=== PATIENT | female | born 1945 | race Caucasian/White ===

== ENCOUNTER 2018-08-18 21:38 | Emergency (ER) | payer MEDICARE ==
[~2018-08-18] VITALS: Ht 162.6 cm; Wt 76.0 kg
[2018-08-18] MEDS ORDERED: ONDANSETRON HCL 4MG/2ML INJ IV STA (22:53)
[2018-08-18] MEDS ORDERED: ONDANSETRON HCL 4MG/2ML INJ IV ONE (23:00)
[2018-08-18] MEDS ORDERED: PROPOFOL 200MG/20ML VIAL IV ONE (23:00)
[2018-08-18] MEDS ORDERED: FENTANYL CITRATE/PF 50MCG/ML 2ML VIAL IV ONE (23:00)
[2018-08-19 06:03] VITALS: BP 144/78
== END 2018-08-19 06:04 | disposition home or self-care (01) ==
LOC: ER 21:38
DX: S52.531A Colles' fracture of right radius, initial encounter for closed fracture (principal); E11.9 Type 2 diabetes mellitus without complications; I10 Essential (primary) hypertension; W01.0XXA Fall on same level from slipping, tripping and stumbling without subsequent striking against object, initial encounter; Y93.89 Activity, other specified; Y92.9 Unspecified place or not applicable; Z86.73 Personal history of transient ischemic attack (TIA), and cerebral infarction without residual deficits; Z88.5 Allergy status to narcotic agent
CPT/HCPCS: 25605; 73070; 73090; 73110; 96374; 96375; 99152; 99285; J2405; J2704; J3010; A4565